=== PATIENT | female | born 2000 | race Caucasian/White ===

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

== ENCOUNTER 2018-01-31 22:56 | Emergency (ER) | payer SELFPAY ==
--- NOTE | 2018-01-31 23:24 | EDM.PDOC ---
ED HPI GENERAL MEDICAL PROBLEM - General Chief Complaint: Lower Extremity Injury/Pain Stated Complaint: RT ANKLE PAIN Time Seen by Provider: 02/01/18 00:05 Source of Information: Reports: Patient History Limitations: Reports: No Limitations - History of Present Illness INITIAL COMMENTS - FREE TEXT/NARRATIVE: 17 yo female has been walking on crutches lately for L knee pain. Tonight her R foot had sudden onset of pain as if she had stepped on a needle. She did not take anything for pain at home, but rather just came here to be seen. Has no hx of the same. Onset: Today Onset Date: 01/31/18 Duration: Minutes:, Other (pain mainly with weight bearing) Location: Reports: Lower Extremity, Right Quality: Reports: Sharp Severity: Moderate Improves with: Reports: Rest Worsens with: Reports: Movement (weight bearing) Context: Reports: Other (Using the R leg a lot lately due to the L knee injury.) Associated Symptoms: Reports: No Other Symptoms Treatments [employer]: Reports: Other (see below) (none) - Related Data Allergies Allergy/AdvReac Type Severity Reaction Status Date / Time tramadol Allergy Hives Verified 02/01/18 00:17 Home Meds: Home Meds NK [No Known Home Meds] 11/26/15 [History] Past Medical History - Past Health History Medical/Surgical History: Denies Medical/Surgical History Psychiatric History: Reports: Anxiety, Depression - Infectious Disease History Infectious Disease History: Reports: Chicken Pox Review of Systems - Review of Systems Review Of Systems: See Below Constitutional: Reports: No Symptoms Musculoskeletal: Reports: Foot Pain (Right) Skin: Reports: No Symptoms Neurological: Reports: No Symptoms ED EXAM, GENERAL - Physical Exam Exam: See Below Exam Limited By: No Limitations General Appearance: Alert, WD/WN, No Apparent Distress, Obese Back Exam: Normal Inspection Extremities: Normal Inspection, Normal Range of Motion, No Pedal Edema. No: Pedal Edema, Luis's Sign, Limited Range of Motion, Increased Warmth, Redness Neurological: Alert, Oriented, CN II-XII Intact, Normal Cognition, No Motor/ Sensory Deficits Psychiatric: Normal Affect, Normal Mood Skin Exam: Warm, Dry, Intact, Normal Color, No Rash Lymphatic: No Adenopathy Course - Orders/Labs/Meds Orders: Active Orders 24 hr Category Date Time Status Foot Comp Min 3V Rt [CR] Stat Exams 01/31/18 22:58 Taken Meds: Medications Discontinued Medications Generic Name Dose Route Start Last Admin Trade Name Magalys PRN Reason Stop Dose Admin Ketorolac Tromethamine 60 mg 02/01/18 00:12 Toradol IM 02/01/18 00:13 ONETIME ONE - Radiology Interpretation Free Text/Narrative:: Foot [id number] Departure - Departure Time of Disposition: 01:00 Disposition: Home, Self-Care 01 Condition: Good Clinical Impression: Foot pain, right - Discharge Information *PRESCRIPTION DRUG MONITORING PROGRAM REVIEWED*: Not Applicable *COPY OF PRESCRIPTION DRUG MONITORING REPORT IN PATIENT FREYA: Not Applicable Instructions: Foot Pain Referrals: PCP,None [Primary Care Provider] - Forms: ED Department Discharge Additional Instructions: Take ibuprofen 600 mg every 6 hrs with food starting after 6 am. Take acetaminophen 1000 mg every 6 hrs for added pain relief. Stay off feet for a few days to allow for recovery. F/U with your provider if not improving. - My Orders Last 24 Hours: My Active Orders 01/31/18 22:58 Foot Comp Min 3V Rt [CR] Stat - Assessment/Plan Last 24 Hours: My Active Orders 01/31/18 22:58 Foot Comp Min 3V Rt [CR] Stat
[2018-02-01] MEDS ORDERED: Ketorolac 60 MG/2 ML SDV IM ONE (00:12)
[2018-02-01 06:22] VITALS: BP 130/77
--- NOTE | 2018-02-01 11:26 | CR ---
INDICATION: Question of stepped on needle. RIGHT FOOT: Three views of the right foot were obtained and revealed no evidence of a radiopaque foreign body - no metallic densities were identified - no needle was seen. No bone or joint abnormality was identified. MTDD
== END 2018-02-01 01:06 | disposition home or self-care (01) ==
LOC: FB.ED 22:56
DX: M79.671 Pain in right foot (principal); Z88.5 Allergy status to narcotic agent
CPT/HCPCS: 73630; 96372; 99283; J1885

== ENCOUNTER 2019-06-05 22:23 | Emergency (ER) | payer MEDICAID ==
[2019-06-05] MEDS ORDERED: Ondansetron 4 MG/2 ML SDV IVPUSH ONE (22:48)
[2019-06-05] MEDS ORDERED: Morphine 2 MG/ML Syringe IVPUSH ONE (22:49)
[2019-06-05] MEDS ORDERED: Sodium Chloride 0.9% 1,000 ML IV SCH (23:00)
[2019-06-05] MEDS ORDERED: Sodium Chloride 0.9% 10 ML Syringe FLUSH PRN (23:10)
[2019-06-06] MEDS ORDERED: Iopamidol 755 Mg/ML 100 ML Bottle IV ONE (00:15)
[2019-06-06] MEDS ORDERED: Azithromycin 500 MG Tab PO ONE (01:25)
[2019-06-06] MEDS ORDERED: Ketorolac 30 MG/ML SDV IVPUSH ONE (01:26)
[2019-06-06 01:31] VITALS: BP 107/56; PULSE 98
--- NOTE | 2019-06-06 01:34 | EDM.PDOC ---
ED HPI GENERAL MEDICAL PROBLEM - General Chief Complaint: Gastrointestinal Problem Stated Complaint: BLOODY STOOL Time Seen by Provider: 06/05/19 22:35 Source of Information: Reports: Patient History Limitations: Reports: No Limitations - History of Present Illness INITIAL COMMENTS - FREE TEXT/NARRATIVE: Patient presented to the ED because of bloody stool and abdominal cramping. The pain is 3/10 with associated nausea but no vomiting. There is no fever or chills. her stool is mostly soft and denies any urinary symptoms. anus Pain Score (Numeric/FACES): 7 - Related Data Allergies Allergy/AdvReac Type Severity Reaction Status Date / Time tramadol Allergy Hives Verified 06/05/19 22:41 Home Meds: Home Meds Azithromycin [Zithromax] 250 mg PO DAILY #36 tab 06/06/19 [Rx] Past Medical History - Past Health History Medical/Surgical History: Denies Medical/Surgical History Musculoskeletal History: Reports: Other (See Below) Other Musculoskeletal History: knee injury a couple weeks ago. Psychiatric History: Reports: Anxiety, Depression - Infectious Disease History Infectious Disease History: Reports: Chicken Pox Social & Family History - Tobacco Use Smoking Status *Q: Current Every Day Smoker Years of Tobacco use: 3 Packs/Tins Daily: 0.5 - Caffeine Use Caffeine Use: Reports: None - Recreational Drug Use Recreational Drug Use: No ED ROS GENERAL - Review of Systems Review Of Systems: See Below Constitutional: Reports: No Symptoms HEENT: Reports: No Symptoms Respiratory: Reports: No Symptoms Cardiovascular: Reports: No Symptoms Endocrine: Reports: No Symptoms GI/Abdominal: Reports: Abdominal Pain, Nausea. Denies: Vomiting Musculoskeletal: Reports: No Symptoms Skin: Reports: No Symptoms Neurological: Reports: No Symptoms Psychiatric: Reports: No Symptoms Hematologic/Lymphatic: Reports: No Symptoms Immunologic: Reports: No Symptoms ED EXAM, GI/ABD - Physical Exam Exam: See Below Exam Limited By: No Limitations General Appearance: Alert, WD/WN, No Apparent Distress Nose: Normal Inspection, Normal Mucosa, No Blood Throat/Mouth: Normal Inspection, Normal Lips, Normal Teeth, Normal Gums Head: Atraumatic, Normocephalic Neck: Normal Inspection, Supple, Non-Tender, Full Range of Motion Respiratory/Chest: No Respiratory Distress, Lungs Clear, Normal Breath Sounds, No Accessory Muscle Use, Chest Non-Tender Cardiovascular: Normal Peripheral Pulses, Regular Rate, Rhythm, No Edema, No Gallop, No JVD, No Rub GI/Abdominal Exam: Soft, No Abnormal Bruit, No Mass, Other (hyperactive bowel sound,tenderness LLQ and LUQ) Extremities: Normal Inspection, Normal Range of Motion, Non-Tender, No Pedal Edema, Normal Capillary Refill Course - Vital Signs Text/Narrative:: labs and CT abd/pelvis was discussed with patient NS 1 L bolus zofran 4 mg IV x1 Morphine 2 mg IV x1 toradol 30 mg IV x1 stool O/P,culture-pending start on Z-brenda for colitis Last Recorded V/S: Last Vital Signs Temp 36.8 C 06/06/19 01:22 Pulse 98 06/06/19 01:22 Resp 14 06/06/19 01:22 BP 107/56 L 06/06/19 01:22 Pulse Ox 100 06/06/19 01:22 - Orders/Labs/Meds Orders: Active Orders 24 hr Category Date Time Status Abdomen Pelvis w Cont [CT] Stat Exams 06/05/19 22:50 Ordered OVA + PARASITE EXAM Stat Lab 06/05/19 22:54 Received STOOL CULTURE Stat Lab 06/05/19 22:54 Received Peripheral IV Insertion Adult [OM.PC] Routine Oth 06/05/19 23:10 Ordered Labs: Laboratory Tests 06/05/19 06/05/19 06/05/19 Range/Units 23:05 23:05 23:05 WBC 10.7 (4.5-12.0) X10-3/uL RBC 4.90 (3.23-5.20) x10(6)uL Hgb 14.7 (11.5-15.5) g/dL Hct 44.2 (30.0-51.3) % MCV 90.2 (80-96) fL MCH 30.0 (27.7-33.6) pg MCHC 33.3 (32.2-35.4) g/dL RDW 12.3 (11.5-15.5) % Plt Count 385 H (125-369) X10(3)uL MPV 8.0 (7.4-10.4) fL Neut % (Auto) 67.9 (46-82) % Lymph % (Auto) 22.1 (13-37) % Sully % (Auto) 7.0 (4-12) % Eos % (Auto) 3 (1.0-5.0) % Baso % (Auto) 1 (0-2) % Neut # (Auto) 7.2 (1.6-8.3) # Lymph # (Auto) 2.4 (0.6-5.0) # Sully # (Auto) 0.7 (0.0-1.3) # Eos # (Auto) 0.3 (0.0-0.8) # Baso # (Auto) 0.1 (0.0-0.2) # Sodium 143 (135-145) mmol/L Potassium 3.9 (3.5-5.3) mmol/L Chloride 105 (100-110) mmol/L Carbon Dioxide 25 (21-32) mmol/L BUN 9 (7-18) mg/dL Creatinine 0.9 (0.55-1.02) mg/dL Est Cr Clr Drug Dosing 74.61 mL/min Estimated GFR (MDRD) > 60 (>60) BUN/Creatinine Ratio 10.0 (9-20) Glucose 104 (80-116) mg/dL Calcium 9.2 (8.6-10.2) mg/dL Total Bilirubin 0.3 (0.1-1.3) mg/dL AST 18 (5-25) IU/L ALT 21 (12-36) U/L Alkaline Phosphatase 89 (56-112) IU/L Total Protein 7.7 (6.0-8.0) g/dL Albumin 4.0 (3.5-5.2) g/dL Globulin 3.7 g/dL Albumin/Globulin Ratio 1.1 Amylase 31 (25-115) U/L Lipase (73-393) U/L Urine Color (YELLOW) Urine Appearance (CLEAR) Urine pH (5.0-6.5) Ur Specific Burton (1.010-1.025) Urine Protein (NEGATIVE) mg/dL Urine Glucose (UA) (NORMAL) mg/dL Urine Ketones (NEGATIVE) mg/dL Urine Occult Blood (NEGATIVE) Urine Nitrite (NEGATIVE) Urine Bilirubin (NEGATIVE) Urine Urobilinogen (NEGATIVE) mg/dL Ur Leukocyte Esterase (NEGATIVE) Urine RBC (0-5) Urine WBC (0-5) Ur Squamous Epith Cells (NS,R,O) Urine Bacteria (NS) Urine Mucus (NS) Urine HCG, Qual (NEGATIVE) 12/16/19 12/16/19 12/16/19 Range/Units 23:05 23:28 23:28 WBC (4.5-12.0) X10-3/uL RBC (3.23-5.20) x10(6)uL Hgb (11.5-15.5) g/dL Hct (30.0-51.3) % MCV (80-96) fL MCH (27.7-33.6) pg MCHC (32.2-35.4) g/dL RDW (11.5-15.5) % Plt Count (125-369) X10(3)uL MPV (7.4-10.4) fL Neut % (Auto) (46-82) % Lymph % (Auto) (13-37) % Sully % (Auto) (4-12) % Eos % (Auto) (1.0-5.0) % Baso % (Auto) (0-2) % Neut # (Auto) (1.6-8.3) # Lymph # (Auto) (0.6-5.0) # Sully # (Auto) (0.0-1.3) # Eos # (Auto) (0.0-0.8) # Baso # (Auto) (0.0-0.2) # Sodium (135-145) mmol/L Potassium (3.5-5.3) mmol/L Chloride (100-110) mmol/L Carbon Dioxide (21-32) mmol/L BUN (7-18) mg/dL Creatinine (0.55-1.02) mg/dL Est Cr Clr Drug Dosing mL/min Estimated GFR (MDRD) (>60) BUN/Creatinine Ratio (9-20) Glucose (80-116) mg/dL Calcium (8.6-10.2) mg/dL Total Bilirubin (0.1-1.3) mg/dL AST (5-25) IU/L ALT (12-36) U/L Alkaline Phosphatase (56-112) IU/L Total Protein (6.0-8.0) g/dL Albumin (3.5-5.2) g/dL Globulin g/dL Albumin/Globulin Ratio Amylase (25-115) U/L Lipase 86 (73-393) U/L Urine Color Yellow (YELLOW) Urine Appearance Slightly cloudy (CLEAR) Urine pH 7.0 H (5.0-6.5) Ur Specific Burton 1.015 (1.010-1.025) Urine Protein Trace (NEGATIVE) mg/dL Urine Glucose (UA) Normal (NORMAL) mg/dL Urine Ketones Negative (NEGATIVE) mg/dL Urine Occult Blood Negative (NEGATIVE) Urine Nitrite Negative (NEGATIVE) Urine Bilirubin Negative (NEGATIVE) Urine Urobilinogen Normal (NEGATIVE) mg/dL Ur Leukocyte Esterase Small H (NEGATIVE) Urine RBC 0-5 (0-5) Urine WBC 5-10 H (0-5) Ur Squamous Epith Cells Moderate H (NS,R,O) Urine Bacteria Few H (NS) Urine Mucus Few H (NS) Urine HCG, Qual Negative (NEGATIVE) Meds: Medications Discontinued Medications Generic Name Dose Route Start Last Admin Trade Name Freq PRN Reason Stop Dose Admin Azithromycin 500 mg 06/06/19 01:25 06/06/19 01:36 Zithromax PO 06/06/19 01:26 500 mg ONETIME ONE Administration Sodium Chloride 1,000 mls @ 999 mls/hr 06/05/19 23:00 06/05/19 23:10 Normal Saline IV 999 mls/hr ASDIRECTED NILDA Administration Iopamidol 100 ml 06/06/19 00:15 06/06/19 00:33 Isovue-370 (76%) IV 06/06/19 00:16 100 ml . DIRECTED ONE Administration Ketorolac Tromethamine 30 mg 06/06/19 01:26 06/06/19 01:35 Toradol IVPUSH 06/06/19 01:27 30 mg ONETIME ONE Administration Morphine Sulfate 2 mg 06/05/19 22:49 06/05/19 23:17 Morphine IVPUSH 06/05/19 22:50 2 mg ONETIME ONE Administration Ondansetron HCl 4 mg 06/05/19 22:48 06/05/19 23:13 Zofran IVPUSH 06/05/19 22:49 4 mg ONETIME ONE Administration Sodium Chloride 10 ml 06/05/19 23:10 06/05/19 23:10 Saline Flush FLUSH 10 ml ASDIRECTED PRN Administration Keep Vein Open Departure - Departure Time of Disposition: 01:30 Disposition: Home, Self-Care 01 Condition: Good Clinical Impression: Colitis, Ovarian cyst - Discharge Information Prescriptions: Azithromycin [Zithromax] 250 mg PO DAILY #36 tab Instructions: Ovarian Cyst, [id number], Colitis Referrals: PCP,None [Primary Care Provider] - Forms: ED Department Discharge Additional Instructions: please read discharge instructions on colitis(infection or inflammation of the large intestines take z-brenda as directed follow up the result of your stool culture after 72 hours take ibuprofen 800 mg with tylenol 1000 mg every 8 hours as needed for pain follow up if symptoms persist Sepsis Event Note - Evaluation Sepsis Screening Result: No Definite Risk - Focused Exam Vital Signs: Vital Signs Temp Pulse Resp BP Pulse Ox 06/06/19 01:22 36.8 C 98 14 107/56 L 100 06/05/19 23:33 37.1 C 117 H 14 131/78 100 Date Exam was Performed: 06/06/19 Time Exam was Performed: 11:19 - My Orders Last 24 Hours: My Active Orders 06/05/19 22:50 Abdomen Pelvis w Cont [CT] Stat 06/05/19 22:54 OVA + PARASITE EXAM Stat STOOL CULTURE Stat 06/05/19 23:10 Peripheral IV Insertion Adult [OM.PC] Routine - Assessment/Plan Last 24 Hours: My Active Orders 06/05/19 22:50 Abdomen Pelvis w Cont [CT] Stat 06/05/19 22:54 OVA + PARASITE EXAM Stat STOOL CULTURE Stat 06/05/19 23:10 Peripheral IV Insertion Adult [OM.PC] Routine
== END 2019-06-06 02:00 | disposition home or self-care (01) ==
LOC: FB.ED 22:23
DX: K52.9 Noninfective gastroenteritis and colitis, unspecified (principal); N83.202 Unspecified ovarian cyst, left side; F17.210 Nicotine dependence, cigarettes, uncomplicated; Z88.6 Allergy status to analgesic agent
CPT/HCPCS: 36415; 74177; 80053; 81001; 81025; 82150; 83690; 85025; 87045; 87046; 87177; 87209; 87427; 96361; 96374; 96375; 99283; 99285-25; A9270-GY; J1885; J2270; J2405; J7030; Q9967

== ENCOUNTER 2022-02-25 21:37 | Emergency (ER) | payer MEDICAID ==
[2022-02-25] MEDS ORDERED: Acetaminophen/HYDROcodone 325-5 MG Tab PO ONE (21:38)
[2022-02-25] MEDS ORDERED: Alum Hydroxide/Mag Hydroxide 15 ML, Lidocaine 2% 15 ML PO ONE ×4 (21:50→22:12)
[2022-02-25 22:01] LABS: ESTIMATED GFR 81 mL/min (>60)
[2022-02-25] MEDS ORDERED: Sodium Chloride 0.9% 10 ML Syringe FLUSH PRN (22:30)
[2022-02-25 22:31] VITALS: BP 146/95
[2022-02-25] MEDS ORDERED: Iopamidol 755 Mg/ML 100 ML Bottle IV ONE (22:38)
[2022-02-25 23:01] VITALS: PULSE 77
[2022-02-25] MEDS ORDERED: Ketorolac 30 MG/ML SDV IVPUSH ONE (23:47)
[2022-02-25] MEDS ORDERED: Acetaminophen/HYDROcodone 325-5 MG Tab PO STA (23:47)
== END 2022-02-26 00:12 | disposition home or self-care (01) ==
LOC: FB.ED 21:37
DX: R10.13 Epigastric pain (principal); Z88.5 Allergy status to narcotic agent
CPT/HCPCS: 36415; 71045; 74177; 80053; 81001; 82150; 83690; 84484; 85025; 93005; 93010; 96374; 99283; 99285; A9270; J1885; J3490; Q9967